=== PATIENT | female | born 1975 | race African-American/Black ===

== ENCOUNTER 2017-02-23 11:33 | Emergency (ER) | payer OTHER ==
[~2017-02-23] VITALS: Ht 172.7 cm; Wt 81.6 kg
[2017-02-23 12:58] LABS: Albumin 3.1 g/dL (3.4-5.0); BUN/Creatinine Ratio 7.7; Calcium 8.2 mg/dL (8.5-10.1); Magnesium 2.3 mg/dL (1.6-2.6)
[2017-02-23 13:01] LABS: Bilirubin, Total 0.4 mg/dL (0.2-1.0); Total Protein 6.1 g/dL (6.4-8.2)
[2017-02-23] MEDS ORDERED: cefTRIAXone 1GM/50ML D5W 50 ML IV ONE (13:45)
[2017-02-23] MEDS ORDERED: MORPHINE SULF INJ 2 MG/ML SYRINGE 1ML IV ONE (13:45)
[2017-02-23 13:58] LABS: Urine Bilirubin Negative (Negative); Urine Blood 3+ /uL (Negative); Urine Color Yellow (Yellow); Urine Glucose Normal (Normal); Urine Ketone Negative (Negative); Urine Nitrite Negative (Negative); Urine RBC <1 /hpf (0 - 4); Urine Squamous Epithelial Cell FEW /hpf (<5); Urine Urobilinogen Normal (Negative)
[2017-02-23] MEDS ORDERED: HYDROcodone-ACET 5/325MG TAB PO ONE (14:00)
[2017-02-23 14:37] VITALS: BP 113/67
== END 2017-02-23 17:27 | disposition home or self-care (01) ==
LOC: ER 11:33 → EDBD 11:33 → ER 17:27
DX: G43.909 Migraine, unspecified, not intractable, without status migrainosus (principal); I10 Essential (primary) hypertension
CPT/HCPCS: 36415; 70450; 80053; 80156; 81001; 83735; 84702; 93005

== ENCOUNTER 2018-10-16 14:07 | Emergency (ER) | payer BC, OTHER ==
[~2018-10-16] VITALS: Ht 170.2 cm; Wt 81.6 kg
[2018-10-16 15:11] LABS: Basophils # (auto) 0.1 uL; Basophils % (auto) 0.7 % (0.0-2.0); Eosinophils # (auto) 0.1 uL; Eosinophils % (auto) 0.8 % (0.0-7.0); Hematocrit 48.5 % (36.0-46.0); Hemoglobin 16.4 g/dL (12.2-16.2); Lymphocytes # (auto) 1.1 uL; Mean Corpuscular Hemoglobin 30.6 pg (28.0-32.0); Mean Corpuscular Hgb Conc. 33.9 g/dL (32.0-36.0); Mean Corpuscular Volume 90.2 fL (80.0-100.0); Monocytes # (auto) 0.4 uL; Monocytes % (auto) 4.2 % (0.0-12.0); Neutrophils # (auto) 7.7 uL; Neutrophils % (auto) 82.3 % (37.0-80.0); Nucleated Red Blood Cells % 0.1 %; Platelet Count (auto) 239 10^3/uL (140-450); Red Blood Cells 5.37 10^6/uL (4.0-5.20); Red Cell Distribution Width 14.5 % (11.8-14.3); White Blood Cell 9.3 10^3/uL (4.4-10.8)
[2018-10-16 15:25] LABS: Albumin 3.8 g/dL (3.4-5.0); BUN/Creatinine Ratio 6.1; Calcium 8.7 mg/dL (8.5-10.1); Potassium 3.6 mmol/L (3.5-5.1)
[2018-10-16 15:28] LABS: Bilirubin, Total 0.2 mg/dL (0.2-1.0); Total Protein 7.4 g/dL (6.4-8.2)
[2018-10-16 16:26] LABS: Urine Bacteria FEW /hpf (None Seen); Urine Blood Negative /uL (Negative); Urine Hyaline Cast FEW /lpf (0 - 2); Urine WBC 2 /hpf (0 - 5)
[2018-10-16] MEDS ORDERED: KETOROLAC TROMETH 30 MG/ML 1ML VIAL IV ONE (18:45)
[2018-10-16 19:45] VITALS: BP 123/88
== END 2018-10-16 20:05 | disposition home or self-care (01) ==
LOC: EDBD 14:07 → ER 14:07
DX: R56.9 Unspecified convulsions (principal); G44.209 Tension-type headache, unspecified, not intractable; I10 Essential (primary) hypertension
CPT/HCPCS: 36415; 80053; 80156; 81001; 85025; 94761; 96374; 99283; J1885

== ENCOUNTER 2021-05-09 07:19 | Emergency (ER) | payer SELFPAY ==
[~2021-05-09] VITALS: Ht 175.3 cm; Wt 54.4 kg
[2021-05-09] MEDS ORDERED: SODIUM CHLORIDE 0.9% 1,000 ML IV ONE (07:45)
[2021-05-09 09:37] LABS: Basophils # (auto) 0 10 ^3/uL (0-0.2); Basophils % (auto) 0.6 % (0.0-2.0); Eosinophils # (auto) 0.1 10 ^3/uL (0-0.8); Eosinophils % (auto) 0.8 % (0.0-7.0); Hematocrit 46.8 % (36.0-46.0); Hemoglobin 16.2 g/dL (12.2-16.2); Lymphocytes # (auto) 1.5 10 ^3/uL (0.4-5.4); Lymphocytes % (auto) 22.5 % (10.0-50.0); Mean Corpuscular Hemoglobin 31.1 pg (28.0-32.0); Mean Corpuscular Hgb Conc. 34.5 g/dL (32.0-36.0); Monocytes # (auto) 0.5 10 ^3/uL (0-1.3); Monocytes % (auto) 7.6 % (0.0-12.0); Neutrophils # (auto) 4.7 10 ^3/uL (1.6-8.6); Neutrophils % (auto) 68.5 % (37.0-80.0); Nucleated Red Blood Cells % 0.2 %; Red Cell Distribution Width 14.1 % (11.8-14.3); White Blood Cell 6.9 10^3/uL (4.4-10.8)
[2021-05-09 09:43] LABS: Urine Bacteria FEW /hpf (None Seen); Urine Blood Negative /uL (Negative); Urine Specific Gravity 1.009 (1.001-1.035); Urine WBC 11 /hpf (0 - 5)
[2021-05-09 09:47] LABS: Albumin 2.9 g/dL (3.4-5.0); Calcium 8.3 mg/dL (8.5-10.1); Potassium 3.5 mmol/L (3.5-5.1)
[2021-05-09 09:52] LABS: BUN/Creatinine Ratio 10.1; Bilirubin, Total 0.8 mg/dL (0.2-1.0); Total Protein 6.4 g/dL (6.4-8.2)
[2021-05-09 11:22] VITALS: BP 130/81
[2021-05-09] MEDS ORDERED: ACETAMINOPHEN 325 MG TAB PO ONE (12:15)
== END 2021-05-09 13:31 | disposition home or self-care (01) ==
LOC: EDBD 07:19 → ER 07:19
DX: R56.9 Unspecified convulsions (principal); N39.0 Urinary tract infection, site not specified; R74.01 Elevation of levels of liver transaminase levels; I10 Essential (primary) hypertension
CPT/HCPCS: 36415; 51701; 70450; 80053; 81001; 85025; 96360; 99285; J7030

== ENCOUNTER 2022-01-15 19:01 | Emergency (ER) | payer SELFPAY ==
[~2022-01-15] VITALS: Ht 167.6 cm; Wt 95.5 kg
[2022-01-15] MEDS ORDERED: diphenhdrAMINE HCL 50 MG/1 ML VL IV ONE (21:15)
[2022-01-15] MEDS ORDERED: VALPROIC ACID 250 MG/5 ML ORAL SOLN PO ONE (21:30)
[2022-01-15] MEDS ORDERED: carBAMazepine 200 MG TAB PO ONE (21:30)
[2022-01-15] MEDS ORDERED: diphenhdrAMINE HCL 50 MG/1 ML VL IM ONE (22:00)
[2022-01-15 22:01] VITALS: BP 133/85
== END 2022-01-15 22:01 | disposition home or self-care (01) ==
LOC: ER 19:01 → EDUNIT# 19:01 → EDBD 19:01 → ER 22:01
DX: R56.9 Unspecified convulsions (principal); I10 Essential (primary) hypertension; Z91.14 Patient's other noncompliance with medication regimen
CPT/HCPCS: 96372; 99283; J1200

== ENCOUNTER 2023-08-29 02:35 | Emergency (ER) | payer BC, OTHER ==
[~2023-08-29] VITALS: Ht 167.6 cm; Wt 76.5 kg
[2023-08-29 02:45] VITALS: BP 118/83; PULSE 104; RESP 16; O2SAT 96
[2023-08-31] MEDS ORDERED: LEVE750T3 PO (15:58)
[2023-08-31] MEDS ORDERED: LACO200T3 PO (15:58)
[2023-08-31] MEDS ORDERED: CENO200T PO (15:58)
[2023-08-31] MEDS ORDERED: FLUT50SP EACHNOSTRI (19:16)
[2023-08-31] MEDS ORDERED: ERGO1CAP12 PO (19:16)
[2023-08-31] MEDS ORDERED: CETI-120 PO (19:16)
[2023-08-31] MEDS ORDERED: CENO50TA PO (20:57)
[2023-09-01] MEDS ORDERED: [UNRECOGNIZED DRUG - CODE] PO (15:29)
== END 2023-08-29 02:53 | disposition left against medical advice (07) ==
LOC: ER 02:35
DX: M79.89 Other specified soft tissue disorders (principal); Z53.21 Procedure and treatment not carried out due to patient leaving prior to being seen by health care provider

== ENCOUNTER 2023-10-02 09:13 | Inpatient (IN) | payer OTHER, MEDICAID ==
[~2023-10-02] VITALS: Ht 167.6 cm; Wt 81.3 kg
[~2023-10-02 09:13] MED LIST: ASPI-498 OR; CENO200T PO; CENO50TA PO; CETI-120 PO; ERGO1CAP12 PO; FLUT50SP EACHNOSTRI; LACO200T3 PO; LEVE750T3 PO; RIV20T PO; TRAM50TA2 PO; [UNRECOGNIZED DRUG - CODE] PO
[2023-10-02 09:53] LABS: Basophils # (auto) 0 10 ^3/uL (0-0.2); Basophils % (auto) 0.6 % (0.0-2.0); Eosinophils # (auto) 0.1 10 ^3/uL (0-0.8); Eosinophils % (auto) 2.3 % (0.0-7.0); Hematocrit 44.4 % (36.0-46.0); Hemoglobin 14.2 g/dL (12.2-16.2); Lymphocytes # (auto) 1.4 10 ^3/uL (0.4-5.4); Lymphocytes % (auto) 33.4 % (10.0-50.0); Mean Corpuscular Hemoglobin 29.4 pg (28.0-32.0); Monocytes # (auto) 0.3 10 ^3/uL (0-1.3); Monocytes % (auto) 8.1 % (0.0-12.0); Neutrophils # (auto) 2.4 10 ^3/uL (1.6-8.6); Neutrophils % (auto) 55.6 % (37.0-80.0); Nucleated Red Blood Cells % 0.3 %; Red Blood Cells 4.83 10^6/uL (4.0-5.20); Red Cell Distribution Width 18.3 % (11.8-14.3); White Blood Cell 4.3 10^3/uL (4.4-10.8)
[2023-10-02 10:12] LABS: Alanine Aminotransferase 173 U/L (7-40); Albumin 3.2 g/dL (3.2-4.8); Alkaline Phosphatase 243 U/L (46-116); Anion Gap 9 (5-15); Aspartate Aminotransferase 275 U/L (13-40); Bilirubin, Total 0.3 mg/dL (0.2-1.0); Blood Urea Nitrogen 11 mg/dL (9-23); Calcium 8.4 mg/dL (8.5-10.1); Carbon Dioxide 21 mmol/L (20-30); Chloride 112 mmol/L (98-107); Glucose 86 mg/dL (74-106); Potassium 4.2 mmol/L (3.5-5.1); Sodium 142 mmol/L (136-145); Total Protein 5.5 g/dL (5.7-8.2)
[2023-10-02] MEDS: ASPirin 325 MG TAB PO ONE (10:30)
[2023-10-02] MEDS ORDERED: CENOBAMATE PO SCH (12:30)
[2023-10-02] MEDS ORDERED: DOCUSATE SOD 100 MG CAP PO PRN (12:30)
[2023-10-02] MEDS ORDERED: ONDANSETRON HCL 4 MG/2 ML VIAL IV PRN (12:30)
[2023-10-02] MEDS ORDERED: MORPHINE SULFATE INJ 2 MG/ml SYRG IV PRN (12:30)
[2023-10-02] MEDS ORDERED: NITROGLYCERIN 0.4 MG SL TAB SL PRN (12:30)
[2023-10-02] MEDS ORDERED: TEMAZEPAM 15 MG CAP PO PRN (12:30)
[2023-10-02] MEDS ORDERED: LACOSAMIDE 200 MG PO SCH (12:30)
[2023-10-02] MEDS: LACOSAMIDE 200 MG PO SCH (22:00)
[2023-10-03] MEDS: ENOXAPARIN SOD 100 MG/1 ML SYRINGE SC SCH (02:25)
[2023-10-03] MEDS: HYDROcodone-ACET 5/325MG TAB PO PRN (02:26)
[2023-10-03 06:54] LABS: Basophils # (auto) 0 10 ^3/uL (0-0.2); Basophils % (auto) 0.8 % (0.0-2.0); Eosinophils # (auto) 0.1 10 ^3/uL (0-0.8); Eosinophils % (auto) 2.3 % (0.0-7.0); Hematocrit 43.9 % (36.0-46.0); Hemoglobin 14.1 g/dL (12.2-16.2); Lymphocytes # (auto) 1.7 10 ^3/uL (0.4-5.4); Lymphocytes % (auto) 36.1 % (10.0-50.0); Mean Corpuscular Hemoglobin 29.6 pg (28.0-32.0); Mean Corpuscular Hgb Conc. 32.2 g/dL (32.0-36.0); Mean Corpuscular Volume 92.2 fL (80.0-100.0); Monocytes # (auto) 0.4 10 ^3/uL (0-1.3); Monocytes % (auto) 8.4 % (0.0-12.0); Neutrophils # (auto) 2.4 10 ^3/uL (1.6-8.6); Neutrophils % (auto) 52.4 % (37.0-80.0); Nucleated Red Blood Cells % 0.2 %; Red Blood Cells 4.76 10^6/uL (4.0-5.20); Red Cell Distribution Width 18.3 % (11.8-14.3); White Blood Cell 4.6 10^3/uL (4.4-10.8)
[2023-10-03 07:06] LABS: Alanine Aminotransferase 162 U/L (7-40); Alkaline Phosphatase 229 U/L (46-116); Anion Gap 10 (5-15); BUN/Creatinine Ratio 15.3 (10.0-20.0); Blood Urea Nitrogen 9 mg/dL (9-23); Calcium 8.4 mg/dL (8.5-10.1); Carbon Dioxide 21 mmol/L (20-30); Chloride 111 mmol/L (98-107); Glucose 75 mg/dL (74-106); Potassium 3.2 mmol/L (3.5-5.1); Sodium 142 mmol/L (136-145)
[2023-10-03 07:07] LABS: Albumin 3.3 g/dL (3.2-4.8); Aspartate Aminotransferase 163 U/L (13-40); Bilirubin, Total 0.2 mg/dL (0.2-1.0); Total Protein 5.8 g/dL (5.7-8.2)
[2023-10-03 08:12] VITALS: RESP 18; O2SAT 100
[2023-10-03] MEDS: MORPHINE SULFATE INJ 2 MG/ml SYRG IV PRN (11:31)
[2023-10-03 12:15] VITALS: BP 110/74; PULSE 59; RESP 18; TEMP 98.6; O2SAT 93
[2023-10-03] MEDS ORDERED: IOHEXOL 350 MG/ML 100ML IJ ONE (13:27)
[2023-10-03] MEDS: POTASSIUM CHL 20 Meq TABLET PO ONE (14:39)
[2023-10-03] MEDS ORDERED: CENOBAMATE 50 MG PO SCH (15:00)
[2023-10-03 15:30] VITALS: BP 103/66; PULSE 56; RESP 16; TEMP 97.8; O2SAT 93
[2023-10-03 20:00] VITALS: BP 117/78; PULSE 56; PULSE 90; RESP 16; TEMP 97.9
[2023-10-03 21:00] VITALS: BP 91/59; PULSE 73; RESP 16; TEMP 97.9; O2SAT 90
[2023-10-03] MEDS: CENOBAMATE 50 MG PO SCH (22:02)
[2023-10-04] VITALS (7 sets, daily range): BP systolic 101–130; BP diastolic 66–98; PULSE 63–80; RESP 15–20; TEMP 97.6–98.4; O2SAT 91–99
[2023-10-04] MEDS: ACETAMINOPHEN 325 MG TAB PO PRN (12:38)
[2023-10-04] MEDS ORDERED: levETIRAcetam 500 MG TAB PO SCH (22:00)
== END 2023-10-04 17:04 | disposition home or self-care (01) | DRG 300 ==
LOC: ER 09:13 → TELE 12:26 → TELE-E-ADS 10-03 08:55 → TELE-CENTR 10-03 18:25
PROVIDERS: ADMIT Nurse Practitioner; ATTEND Nurse Practitioner
DX: I82.432 Acute embolism and thrombosis of left popliteal vein (principal); D68.59 Other primary thrombophilia; R07.9 Chest pain, unspecified; R74.01 Elevation of levels of liver transaminase levels; I10 Essential (primary) hypertension; G40.909 Epilepsy, unspecified, not intractable, without status epilepticus; Z79.01 Long term (current) use of anticoagulants; Z86.711 Personal history of pulmonary embolism; Z82.49 Family history of ischemic heart disease and other diseases of the circulatory system; Z86.718 Personal history of other venous thrombosis and embolism
CPT/HCPCS: 36415; 71045; 71275; 80053; 84484; 85025; 85379; 87081; 93005; 93970; 97163; G0378

== ENCOUNTER 2023-11-30 01:02 | Emergency (ER) | payer OTHER, MEDICAID ==
[~2023-11-30] VITALS: Ht 167.6 cm; Wt 81.6 kg
[2023-11-30 01:08] VITALS: BP 144/91; RESP 20; O2SAT 99
[2023-11-30 01:19] LABS: Basophils # (auto) 0 10 ^3/uL (0-0.2); Basophils % (auto) 0.4 % (0.0-2.0); Eosinophils # (auto) 0.1 10 ^3/uL (0-0.8); Eosinophils % (auto) 2.8 % (0.0-7.0); Hematocrit 39.9 % (36.0-46.0); Hemoglobin 13.1 g/dL (12.2-16.2); Lymphocytes # (auto) 1.9 10 ^3/uL (0.4-5.4); Lymphocytes % (auto) 41.7 % (10.0-50.0); Mean Corpuscular Hemoglobin 29.6 pg (28.0-32.0); Mean Corpuscular Hgb Conc. 32.9 g/dL (32.0-36.0); Monocytes # (auto) 0.5 10 ^3/uL (0-1.3); Monocytes % (auto) 10.2 % (0.0-12.0); Neutrophils % (auto) 44.9 % (37.0-80.0); Nucleated Red Blood Cells % 0.1 %; Red Blood Cells 4.44 10^6/uL (4.0-5.20); White Blood Cell 4.4 10^3/uL (4.4-10.8)
[2023-11-30 02:04] VITALS: PULSE 60
[2023-11-30 02:07] LABS: Alanine Aminotransferase 86 U/L (7-40); Albumin 3.3 g/dL (3.2-4.8); Alkaline Phosphatase 120 U/L (46-116); Anion Gap 7 (5-15); Aspartate Aminotransferase 118 U/L (13-40); Bilirubin, Total 0.2 mg/dL (0.2-1.0); Calcium 8.6 mg/dL (8.7-10.4); Carbon Dioxide 22 mmol/L (20-30); Chloride 114 mmol/L (98-107); Glucose 87 mg/dL (74-106); Potassium 3.2 mmol/L (3.5-5.1); Sodium 143 mmol/L (136-145); Total Protein 5.7 g/dL (5.7-8.2)
[2023-11-30 02:35] LABS: BUN/Creatinine Ratio 8.5 (10.0-20.0); Blood Urea Nitrogen < 5 mg/dL (9-23)
== END 2023-11-30 06:02 | disposition left against medical advice (07) ==
LOC: ER 01:02
DX: R07.89 Other chest pain (principal); Z53.21 Procedure and treatment not carried out due to patient leaving prior to being seen by health care provider
CPT/HCPCS: 36415; 71045; 80053; 84484; 85025; 93005

== ENCOUNTER 2023-12-05 17:40 | Inpatient (IN) | payer OTHER, MEDICAID ==
[~2023-12-05] VITALS: Ht 167.6 cm; Wt 85.0 kg
[2023-12-05 18:57] LABS: Alanine Aminotransferase 55 U/L (7-40); Albumin 3.2 g/dL (3.2-4.8); Alkaline Phosphatase 106 U/L (46-116); Anion Gap 10 (5-15); Aspartate Aminotransferase 47 U/L (13-40); BUN/Creatinine Ratio 11.3 (10.0-20.0); Bilirubin, Total 0.3 mg/dL (0.2-1.0); Blood Urea Nitrogen 7 mg/dL (9-23); Calcium 8.6 mg/dL (8.5-10.1); Carbon Dioxide 22 mmol/L (20-30); Chloride 110 mmol/L (98-107); Glucose 96 mg/dL (74-106); Potassium 3.4 mmol/L (3.5-5.1); Sodium 142 mmol/L (136-145); Total Protein 5.1 g/dL (5.7-8.2)
[2023-12-05] MEDS ORDERED: MORPHINE SULFATE INJ 2 MG/ml SYRG IV PRN ×2 (19:45)
[2023-12-05] MEDS ORDERED: ACETAMINOPHEN 325 MG TAB PO PRN (19:45)
[2023-12-05] MEDS ORDERED: NITROGLYCERIN 0.4 MG SL TAB SL PRN (19:45)
[2023-12-05] MEDS ORDERED: DOCUSATE SOD 100 MG CAP PO PRN (19:45)
[2023-12-05] MEDS ORDERED: ONDANSETRON HCL 4 MG/2 ML VIAL IV PRN (19:45)
[2023-12-05 20:14] VITALS: PULSE 69; RESP 13; O2SAT 97
[2023-12-05 20:21] LABS: Basophils # (auto) 0 10 ^3/uL (0-0.2); Basophils % (auto) 0.5 % (0.0-2.0); Eosinophils # (auto) 0 10 ^3/uL (0-0.8); Eosinophils % (auto) 0.1 % (0.0-7.0); Hematocrit 39.8 % (36.0-46.0); Lymphocytes # (auto) 0.8 10 ^3/uL (0.4-5.4); Lymphocytes % (auto) 12.1 % (10.0-50.0); Mean Corpuscular Hgb Conc. 32.6 g/dL (32.0-36.0); Mean Corpuscular Volume 89.1 fL (80.0-100.0); Monocytes # (auto) 0.3 10 ^3/uL (0-1.3); Monocytes % (auto) 4.5 % (0.0-12.0); Neutrophils # (auto) 5.4 10 ^3/uL (1.6-8.6); Neutrophils % (auto) 82.8 % (37.0-80.0); Nucleated Red Blood Cells % 0.1 %; Red Blood Cells 4.47 10^6/uL (4.0-5.20); Red Cell Distribution Width 14.2 % (11.8-14.3); White Blood Cell 6.5 10^3/uL (4.4-10.8)
[2023-12-05] MEDS: levETIRAcetam 1000 mg/100ml 100 ML IV ONE (20:44)
[2023-12-05 20:59] LABS: Urine Bacteria FEW /hpf (None Seen); Urine Blood Negative /uL (Negative); Urine Clarity Clear (Clear); Urine Color Light-Yellow (Yellow); Urine Protein, UAD Negative (Negative); Urine Specific Gravity 1.014 (1.001-1.035); Urine Urobilinogen Normal (Negative); Urine WBC 3 /hpf (0 - 5); Urine pH 6.5 (5.0-9.0)
[2023-12-05] MEDS: levETIRAcetam 1000 mg/100ml 100 ML IV SCH (22:00)
[2023-12-05] MEDS: HYDROcodone-ACET 5/325MG TAB PO PRN (22:37)
[2023-12-05 23:46] VITALS: BP 118/72; PULSE 67; PULSE 75; RESP 18; TEMP 98.5; O2SAT 97; O2SAT 98
[2023-12-06] VITALS (7 sets, daily range): BP systolic 110–134; BP diastolic 70–94; PULSE 62–88; RESP 17–20; TEMP 98–99.2; O2SAT 95–100
[2023-12-06 06:12] LABS: Basophils # (auto) 0.1 10 ^3/uL (0-0.2); Basophils % (auto) 1.5 % (0.0-2.0); Eosinophils # (auto) 0.1 10 ^3/uL (0-0.8); Hematocrit 34.1 % (36.0-46.0); Hemoglobin 11.5 g/dL (12.2-16.2); Lymphocytes # (auto) 1.9 10 ^3/uL (0.4-5.4); Lymphocytes % (auto) 32.1 % (10.0-50.0); Mean Corpuscular Hemoglobin 29.3 pg (28.0-32.0); Mean Corpuscular Hgb Conc. 33.7 g/dL (32.0-36.0); Monocytes # (auto) 0.6 10 ^3/uL (0-1.3); Monocytes % (auto) 10.1 % (0.0-12.0); Neutrophils # (auto) 3.2 10 ^3/uL (1.6-8.6); Neutrophils % (auto) 55.3 % (37.0-80.0); Nucleated Red Blood Cells % 0.2 %; Red Blood Cells 3.93 10^6/uL (4.0-5.20); Red Cell Distribution Width 13.9 % (11.8-14.3); White Blood Cell 5.8 10^3/uL (4.4-10.8)
[2023-12-06 06:27] LABS: Alanine Aminotransferase 40 U/L (7-40); Alkaline Phosphatase 88 U/L (46-116); Anion Gap 7 (5-15); Carbon Dioxide 24 mmol/L (20-30); Chloride 111 mmol/L (98-107); Glucose 70 mg/dL (74-106); Potassium 2.9 mmol/L (3.5-5.1); Sodium 142 mmol/L (136-145)
[2023-12-06 06:29] LABS: Albumin 2.7 g/dL (3.2-4.8); Aspartate Aminotransferase 37 U/L (13-40); Bilirubin, Total 0.3 mg/dL (0.2-1.0); Total Protein 4.4 g/dL (5.7-8.2)
[2023-12-06 06:38] LABS: BUN/Creatinine Ratio 9.3 (10.0-20.0); Blood Urea Nitrogen < 5 mg/dL (9-23)
[2023-12-06] MEDS: ENOXAPARIN SOD 40 MG/0.4 ML SYRINGE SC SCH (10:00)
[2023-12-06] MEDS: PANTOPRAZOLE 40 MG/10 ML VIAL INJ IV SCH (10:15)
[2023-12-06] MEDS: POTASSIUM CHL 20 Meq TABLET PO ONE (12:29)
[2023-12-06] MEDS ORDERED: FOLI-119 PO (14:43)
[2023-12-06] MEDS ORDERED: [UNRECOGNIZED DRUG - CODE] IM (14:43)
[2023-12-06] MEDS ORDERED: CALC1TAB92 PO (14:43)
[2023-12-06] MEDS ORDERED: LORazepam 2MG/ML-1ML VIAL IV PRN (20:30)
[2023-12-06] MEDS: LACOSAMIDE 50 MG TAB PO SCH (21:25)
[2023-12-06] MEDS: levETIRAcetam 500 MG TAB PO SCH (21:28)
[2023-12-06] MEDS: TEMAZEPAM 15 MG CAP PO PRN (23:20)
[2023-12-07] VITALS (7 sets, daily range): BP systolic 115–138; BP diastolic 81–91; PULSE 52–111; RESP 16–18; TEMP 97.7–98.7; O2SAT 96–100
[2023-12-07] MEDS: XCOPRI PO SCH (09:42)
[2023-12-08 05:00] VITALS: BP 118/70; PULSE 54; RESP 17; TEMP 98; O2SAT 100
[2023-12-08 08:05] VITALS: RESP 18
[2023-12-08 08:56] VITALS: BP 119/77; PULSE 53; RESP 16; TEMP 97.9; O2SAT 98
[2023-12-08 12:43] VITALS: BP 143/91; PULSE 69; RESP 17; TEMP 98.6; O2SAT 91
[2023-12-08 16:40] VITALS: TEMP 37
[2023-12-08 16:45] VITALS: BP 132/86; PULSE 55; RESP 17; TEMP 97.6; O2SAT 92
== END 2023-12-08 17:00 | disposition home health service (06) | DRG 101 ==
LOC: ER 17:40 → EDBD 17:40 → TELE 19:45 → TELE-WESTW 23:55
PROVIDERS: ADMIT Nurse Practitioner; ATTEND Nurse Practitioner
DX: G40.209 Localization-related (focal) (partial) symptomatic epilepsy and epileptic syndromes with complex partial seizures, not intractable, without status epilepticus (principal); G40.409 Other generalized epilepsy and epileptic syndromes, not intractable, without status epilepticus; F41.9 Anxiety disorder, unspecified; E87.6 Hypokalemia; E66.9 Obesity, unspecified; I10 Essential (primary) hypertension; Z83.3 Family history of diabetes mellitus; Z82.49 Family history of ischemic heart disease and other diseases of the circulatory system; Z79.899 Other long term (current) drug therapy; Z68.30 Body mass index [BMI] 30.0-30.9, adult
CPT/HCPCS: 36415; 80053; 81001; 85025; 93005; 95819; 96365; C9113; G0378